=== PATIENT | male | born 1975 | race Caucasian/White ===

== ENCOUNTER 2020-10-12 15:35 | Emergency (ER) | payer OTHER ==
[2020-10-12 20:36] LABS: HEMOGLOBIN 14.4 gm/dl (14.0-17.5); RED BLOOD COUNT 4.46 M/UL (4.20-5.50)
[2020-10-12 20:57] LABS: BUN/CREATININE RATIO 16 (0-10)
== END 2020-10-12 21:17 | disposition home or self-care (01) ==
LOC: ER1 15:35
PROVIDERS: Emergency Medicine
DX: S39.012A Strain of muscle, fascia and tendon of lower back, initial encounter (principal); X50.1XXA Overexertion from prolonged static or awkward postures, initial encounter
CPT/HCPCS: 80053; 85025; 85610; 96372; 99283; J1885

== ENCOUNTER 2021-03-29 14:31 | Emergency (ER) | payer OTHER ==
[2021-03-29 16:16] LABS: HEMOGLOBIN 14.6 gm/dl (14.0-17.5); RED BLOOD COUNT 4.6 M/UL (4.20-5.50); WHITE BLOOD COUNT 6.1 K/UL (4.5-11.0)
[2021-03-29 16:38] LABS: BUN/CREATININE RATIO 11 (0-10)
[2021-03-29] MEDS ORDERED: ZITHROMAX500 MG PO (17:23)
[2021-03-29] MEDS ORDERED: TESSALON PERLE100 MG PO (17:23)
[2021-03-29] MEDS ORDERED: VENTOLIN HFA 66.7 GM INH (17:23)
== END 2021-03-29 17:55 | disposition home or self-care (01) ==
LOC: ER1 14:31
PROVIDERS: Preventive Medicine Occupational Medicine
DX: U07.1 COVID-19 (principal)
CPT/HCPCS: 0240U; 71045; 80053; 82550; 82553; 83690; 83874; 84484; 85025; 86140; 93005; 94664; 96374; 99284; J1100

== ENCOUNTER 2021-11-25 17:35 | Emergency (ER) | payer OTHER ==
[~2021-11-25 17:35] MED LIST: TESSALON PERLE100 MG PO; VENTOLIN HFA 66.7 GM INH; ZITHROMAX500 MG PO
[2021-11-25 18:07] LABS: HEMOGLOBIN 14.1 gm/dl (14.0-17.5); RED BLOOD COUNT 4.46 M/UL (4.20-5.50); WHITE BLOOD COUNT 10.6 K/UL (4.5-11.0)
[2021-11-25 18:33] LABS: BUN/CREATININE RATIO 10 (0-10)
== END 2021-11-25 20:35 | disposition home or self-care (01) ==
LOC: ER1 17:35
PROVIDERS: Physician Assistant
DX: R07.9 Chest pain, unspecified (principal); F43.21 Adjustment disorder with depressed mood; F17.210 Nicotine dependence, cigarettes, uncomplicated
CPT/HCPCS: 71045; 80053; 82550; 82553; 84484; 85025; 93005; 99285

== ENCOUNTER 2021-12-09 20:41 | Emergency (ER) | payer OTHER ==
[2021-12-09] MEDS ORDERED: IBUPROFEN600 MG PO (22:18)
[2021-12-09] MEDS ORDERED: PROVENTIL HFA6.7 GM INH (22:18)
[2021-12-09] MEDS ORDERED: BENZONATATE100 MG PO (22:18)
== END 2021-12-09 22:35 | disposition home or self-care (01) ==
LOC: ER1 20:41
DX: J06.9 Acute upper respiratory infection, unspecified (principal); F17.210 Nicotine dependence, cigarettes, uncomplicated; Z20.822 Contact with and (suspected) exposure to COVID-19
CPT/HCPCS: 0240U; 71045; 87081; 87880; 99283

== ENCOUNTER 2022-05-29 13:29 | Emergency (ER) | payer OTHER ==
[~2022-05-29 13:29] MED LIST changes: +BENZONATATE100 MG PO; +IBUPROFEN600 MG PO; +PROVENTIL HFA6.7 GM INH
[2022-05-29] MEDS ORDERED: IBU800 MG PO (19:31)
== END 2022-05-29 20:00 | disposition home or self-care (01) ==
LOC: ER1 13:29
DX: M54.50 Low back pain, unspecified (principal); F17.200 Nicotine dependence, unspecified, uncomplicated; X50.0XXA Overexertion from strenuous movement or load, initial encounter
CPT/HCPCS: 72131; 96372; 99283; J1100; J1885